=== PATIENT | female | born 1960 | race American Indian/Alaskan Native ===

== ENCOUNTER 2016-05-30 19:35 | Emergency (ER) | payer BC ==
[2016-05-30 19:57] VITALS: BP 161/93
[2016-05-30 21:18] LABS: Anion Gap 19 mmol/L; Blood Urea Nitrogen 10 mg/dL (7-17); Calcium 9.1 mg/dL (8.4-10.2); Carbon Dioxide 25 mmol/L (22-30); Chloride 101.1 mmol/L (98-107); Glucose 110 mg/dL (65-100); Potassium 3.9 mmol/L (3.6-5.0); Sodium 141 mmol/L (137-145)
[2016-05-30 21:19] LABS: Eosinophils % (Auto) 3.6 % (0.0-4.3); Hematocrit 36.2 % (30.3-42.9); Hemoglobin 11.6 gm/dl (10.1-14.3); Mean Corpuscular HGB Conc 32 % (30-34); Mean Corpuscular Hemoglobin 28 pg (28-32); Mean Corpuscular Volume 87 fl (79-97); Platelet Count 324 K/mm3 (140-440); Red Blood Count 4.18 M/mm3 (3.65-5.03); Red Cell Distribution Width 14.6 % (13.2-15.2); White Blood Count 6.2 K/mm3 (4.5-11.0)
--- NOTE | 2016-06-01 14:45 | ED Elopement Review ---
ED Pt Elopement review - Results review Lab results: Laboratory Tests 05/30/16 05/30/16 05/30/16 20:34 20:34 23:26 WBC 6.2 RBC 4.18 Hgb 11.6 Hct 36.2 MCV 87 MCH 28 MCHC 32 RDW 14.6 Plt Count 324 Lymph % (Auto) 33.8 Brule % (Auto) 7.4 H Eos % (Auto) 3.6 Baso % (Auto) 1.0 Lymph # 2.1 Brule # 0.5 Eos # 0.2 Baso # 0.1 Seg Neutrophils % 54.2 Seg Neutrophils # 3.4 Sodium 141 Potassium 3.9 Chloride 101.1 Carbon Dioxide 25 Anion Gap 19 BUN 10 Creatinine 0.5 L Estimated GFR > 60 BUN/Creatinine Ratio 20.00 Glucose 110 H Calcium 9.1 Troponin T < 0.010 < 0.010 - Call Back decision Pt Call Back Decision: No action required
== END 2016-05-30 20:30 | disposition left against medical advice (07) ==
LOC: ED 19:35
DX: R07.89 Other chest pain (principal); R05 Cough; R53.1 Weakness; Z53.21 Procedure and treatment not carried out due to patient leaving prior to being seen by health care provider
CPT/HCPCS: 36415; 80048; 84484; 85025; 93005; 93010